=== PATIENT | male | born 1970 | race Caucasian/White ===

== ENCOUNTER → 2017-06-06 | Outpatient (CLI) | payer OTHER ==
[~2017-06-06] MED LIST: CYCL5TAB PO; IBUP-238 PO; IBUP600T26 PO; IBUP800T23 PO
--- NOTE | 2017-06-06 15:22 | RADRPT ---
EXAM DATE/TIME: 06/06/2017 14:58 [facility] COMPARISON: SHOULDER RIGHT COMPLETE (>2VWS), June 06, 2017, 14:56. INDICATIONS : Left shoulder pain for 1 week with no known injury MEDICAL HISTORY : None. SURGICAL HISTORY : None. ENCOUNTER: Initial ACUITY: 1 week PAIN SCORE: 7/10 LOCATION: Left entire shoulder FINDINGS: Multiple view examination of the left shoulder demonstrates no evidence of fracture or dislocation. The glenohumeral and acromioclavicular joints are maintained. There is normal range of motion betwee n internal and external rotation. Bony mineralization is normal. CONCLUSION: 1. No acute bony abnormality identified. 2. The visualized portion of the left lung apex is clear. Eddie Vallecillo MD on June 06, 2017 at 15:20 Board Certified Radiologist. This report was verified electronically.
--- NOTE | 2017-06-06 15:22 | RADRPT ---
EXAM DATE/TIME: 06/06/2017 14:56 [facility] COMPARISON: No previous studies available for comparison. INDICATIONS : Right shoulder pain for 1 week with no known injury MEDICAL HISTORY : None. SURGICAL HISTORY : None. ENCOUNTER: Initial ACUITY: 1 week PAIN SCORE: 7/10 LOCATION: Right entire shoulder FINDINGS: Multiple view examination of the right shoulder demonstrates no evidence of fracture or dislocation. The glenohumeral and acromioclavicular joints are maintained. There is normal range of motion betwe en internal and external rotation. Bony mineralization is normal. CONCLUSION: 1. No acute bony abnormality is identified. 2. The limited portion of the lung apex visualized is clear. Eddie Vallecillo MD on June 06, 2017 at 15:20 Board Certified Radiologist. This report was verified electronically.
== END ==
LOC: HRAD 14:35
DX: M25.511 Pain in right shoulder (principal); M25.512 Pain in left shoulder
CPT/HCPCS: 73030

== ENCOUNTER → 2017-06-16 | Outpatient (CLI) | payer OTHER ==
--- NOTE | 2017-06-16 09:41 | RADRPT ---
EXAM DATE/TIME: 06/16/2017 08:46 [facility] COMPARISON: WRIST RIGHT COMPLETE ([id number]), April 25, 2009, 13:47. INDICATIONS : Patient states right wrist pain, no known trauma to area. MEDICAL HISTORY : None. SURGICAL HISTORY : None. ENCOUNTER: Initial ACUITY: 1 month PAIN SCORE: 6/10 LOCATION: Right Wrist FINDINGS: Three views of the right wrist demonstrate no fracture or dislocation. There are stable small cystic areas within the lunate. Mineralization is within normal limits. There is no significant arthropathy. No soft tissue abnormality or radiopaque foreign body is identified. CONCLUSION: Stable examination of the right wrist. No acute abnormality is identified. Shravan Mendoza MD on June 16, 2017 at 9:39 Board Certified Radiologist. This report was verified electronically.
--- NOTE | 2017-06-16 10:32 | RADRPT ---
EXAM DATE/TIME: 06/16/2017 08:49 [facility] COMPARISON: No previous studies available for comparison. INDICATIONS : Patient states neck pain, no known trauma to area. MEDICAL HISTORY : None. SURGICAL HISTORY : None. ENCOUNTER: Initial ACUITY: 1 month PAIN SCORE: 6/10 LOCATION: Bilateral Cervical FINDINGS: 6 views of the cervical spine demonstrate no fracture or dislocation. There is decreased disc height at C6-C7 with endplate osteophytes and bilateral uncovertebral osteophytes which mildly narrow the ne ural foramina. There is no prevertebral soft tissue swelling and the atlantoaxial relationship is wit hin normal limits. The visualized surrounding structures demonstrate no acute finding. CONCLUSION: No acute cervical spine abnormality is identified. There is degenerative disc disease at C6-C7 with m ild neural foraminal narrowing bilaterally at this level. Shravan Mendoza MD on June 16, 2017 at 10:06 Board Certified Radiologist. This report was verified electronically.
== END ==
LOC: HRAD 08:16
DX: M25.511 Pain in right shoulder (principal); M25.531 Pain in right wrist
CPT/HCPCS: 72050; 73110